=== PATIENT | female | born 1980 | race Caucasian/White ===

== ENCOUNTER 2017-11-03 05:24 | Emergency (ER) | payer SELFPAY ==
[2017-11-03 05:36] VITALS: O2SAT 100
--- NOTE | 2017-11-03 05:43 | C.PDOC ---
History Of Present Illness 36-year-old female presents to the ED with complaints of left ear pain and left- sided headache that began 1 hour ago. She denies any trauma, states pain began while she was sleeping. Otherwise she denies any pruritus, discharge, changes in hearing, fever, cough, or sore throat. Patient did not take any pain medication at home. Time Seen by Provider: 11/03/17 05:37 Chief Complaint (Nursing): ENT Problem History Per: Patient History/Exam Limitations: None Onset/Duration Of Symptoms: Hrs Current Symptoms Are (Timing): Still Present Quality (Ear): Pain W/Touch, Redness Past Medical History Reviewed: Historical Data, Nursing Documentation, Vital Signs Vital Signs: Last Vital Signs Temp 97.4 F L 11/03/17 05:31 Pulse 64 11/03/17 05:31 Resp 20 11/03/17 05:31 BP 116/81 11/03/17 05:31 Pulse Ox 100 11/03/17 06:10 - Medical History PMH: No Chronic Diseases Surgical History: No Surg Hx Family History: States: No Known Family Hx - Social History Hx Tobacco Use: No Hx Alcohol Use: No Hx Substance Use: No - Immunization History Hx Tetanus Toxoid Vaccination: No Hx Influenza Vaccination: No Hx Pneumococcal Vaccination: No Review Of Systems Except As Marked, All Systems Reviewed And Found Negative. Constitutional: Negative for: Fever, Chills ENT: Positive for: Ear Pain. Negative for: Ear Discharge, Throat Pain, Other ( hearing loss, pruritus) Respiratory: Negative for: Cough Physical Exam - Physical Exam Appears: Well, Non-toxic, No Acute Distress Skin: Warm, Dry Head: Atraumatic, Normacephalic Eye(s): bilateral: Normal Inspection Ear(s): Left: TM Erythema, TM Dull, Other (Left ear canal is erythematous and edematous; Tenderness on palpation of tragus), Right: Normal Oral Mucosa: Moist Neck: Normal ROM Chest: Symmetrical Respiratory: No Accessory Muscle Use Extremity: Bilateral: Atraumatic, Normal Color And Temperature, Normal ROM Neurological/Psych: Oriented x3, Normal Speech ED Course And Treatment O2 Sat by Pulse Oximetry: 100 (RA) Pulse Ox Interpretation: Normal Medical Decision Making Medical Decision Making: Impression: Otitis externa Plan: * Tramadol 50 mg PO * Ofloxacin x5 drops to left ear Progress/Updates: Patient remains afebrile, AAOx3, in no acute distress. Normal neuro exam, no nuchal rigidity, no signs of mastoiditis. Provided with prescriptions for ear drops. Patient feels comfortable going home and will be discharged. Patient given follow up instructions. Instructed to return to ER if symptoms worsen or new symptoms arise. Disposition Counseled Patient/Family Regarding: Diagnosis, Need For Followup, Rx Given - Disposition Referrals: Daniel Elias MD [Staff Provider] - Disposition: HOME/ ROUTINE Disposition Time: 06:19 Condition: STABLE Additional Instructions: Instill 5 drops of antibiotic ear solution into left ear twice a day for 7-10 days Take Tylenol or Motrin for pain Avoid placing anything else in ear, and no swimming Follow up with ENT if symptoms do not improve Prescriptions: Ciprofloxacin/Hydrocortisone [Cipro Hc Otic Suspension] 5 drop BID 7 Days #1 drops.susp Ibuprofen [Motrin] 600 mg PO Q8 #30 tab Instructions: Outer Ear Infection (DC) Forms: [employer] (I[place]ic) - POA Present On Arrival: None - Clinical Impression Clinical Impression: Otitis externa - PA / RADIOLOGIC THERAPIST / Resident Statement MD/DO has reviewed & agrees with the documentation as recorded. - Scribe Statement The provider has reviewed the documentation as recorded by the Scribe (Brielle Lanier) All medical record entries made by the Scribe were at my direction and personally dictated by me. I have reviewed the chart and agree that the record accurately reflects my personal performance of the history, physical exam, medical decision making, and the department course for this patient. I have also personally directed, reviewed, and agree with the discharge instructions and disposition.
[2017-11-03] MEDS ORDERED: Ofloxacin 0.3% Otic Soln AS STA (05:47)
[2017-11-03 08:03] VITALS: BP 118/79; PULSE 65; RESP 18; TEMP 97.6
== END 2017-11-03 08:02 | disposition home or self-care (01) ==
LOC: C.ER 05:24
DX: H60.92 Unspecified otitis externa, left ear (principal)